=== PATIENT | female | born 1980 | race Caucasian/White ===

== ENCOUNTER 2019-11-02 14:59 | Emergency (ER) | payer OTHER ==
[~2019-11-02] VITALS: Ht 162.6 cm; Wt 90.7 kg
[2019-11-02] MEDS ORDERED: XANAX XR1 MG PO (15:12)
[2019-11-02] MEDS ORDERED: XANAX1 MG PO ×2 (15:12→15:20)
[2019-11-02 15:13] LABS: URINE BILIRUBIN NEGATIVE (Negative); URINE BLOOD 2+ (Negative); URINE CLARITY CLOUDY; URINE COLOR YELLOW; URINE GLUCOSE-RANDOM NEGATIVE (Negative); URINE KETONES NEGATIVE (Negative); URINE LEUKOCYTES-REFLEX 1+ (Negative); URINE PROTEIN NEGATIVE (Negative); URINE SPECIFIC GRAVITY 1.015 (1.005-1.030)
[2019-11-02] MEDS ORDERED: OMEPRAZOLE20 M3 PO (15:13)
[2019-11-02 15:14] LABS: URINE NITRITE-REFLEX POSITIVE (Negative)
[2019-11-02 15:19] LABS: AMP/METHAMP Negative (Negative); BARBITURATES Negative (Negative); BENZODIAZEPINES POSITIVE (Negative); COCAINE Negative (Negative); METHADONE Negative (Negative); OPIATES Negative (Negative); PCP Negative (Negative); THC Negative (Negative)
[2019-11-02 15:20] LABS: SQUAMOUS >10 Many /LPF (0-3)
[2019-11-02] MEDS ORDERED: WELLBUTRIN SR150 M1 PO (15:20)
[2019-11-02] MEDS ORDERED: XANAX XR2 MG PO (15:20)
[2019-11-02 15:21] LABS: BACTERIA-REFLEX >30 Many /HPF (None Seen); CASTS None Seen /LPF (None Seen); CRYSTALS None Seen /LPF (None Seen); MUCUS >6 Heavy strn/LPF (None Seen); URINE RBC 0-2 Rare /HPF (0-2); URINE WBC-REFLEX 6-15 Few /HPF (0-5)
[2019-11-02] MEDS ORDERED: PHENTERMINE H37.5 MG PO (15:21)
[2019-11-02] MEDS ORDERED: LONHALA MA25 MCG/1 M (15:22)
[2019-11-02 15:37] LABS: ABSOLUTE BASOPHILS 0.1 thou/uL (0.0-0.2); ABSOLUTE EOSINOPHILS 0.3 thou/uL (0.0-0.7); ABSOLUTE LYMPHOCYTES 2.1 thou/uL (0.8-5.3); ABSOLUTE MONOCYTES 0.6 thou/uL (0.0-1.2); ABSOLUTE NEUTROPHILS 6.5 thou/uL (1.6-8.1); BASOPHILS 0.9 %; EOSINOPHILS 3.2 %; HEMATOCRIT 42.7 % (37.0-47.0); HEMOGLOBIN 14.7 gm/dL (12.0-15.0); LYMPHOCYTES 21.5 %; MCH 32.4 pg (26.0-34.0); MCHC 34.5 g/dL (28.0-37.0); MCV 94.1 fL (80.0-100.0); MONOCYTES 6.7 %; MPV 7.9 fl. (7.2-11.1); NUCLEATED RBCS 0 /100WBC; PLATELET COUNT* 425 thou/uL (150-400); POLYS 67.7 %; RBC 4.53 mil/uL (4.20-5.00); RDW-CV 13.3 % (10.5-14.5); WBC 9.6 thou/uL (4.0-11.0)
[2019-11-02 15:48] LABS: CALCIUM 8.6 mg/dL (8.5-10.1); CREATININE 0.9 mg/dL (0.6-1.3); POTASSIUM 3.9 mmol/L (3.5-5.1)
[2019-11-02] MEDS ORDERED: BACTRIM DS TAB1 EAC1 PO (15:48)
[2019-11-02 15:53] LABS: TOTAL BILIRUBIN 0.3 mg/dL (<0.1-1.0); TOTAL PROTEIN 7.3 g/dL (6.4-8.2)
[2019-11-02 15:54] LABS: ACETAMINOPHEN < 2 ug/mL (10-30); ALCOHOL < 10 mg/dL (<10); SALICYLATE < 2.8 mg/dL (2.8-20.0)
[2019-11-03 15:50] VITALS: BP 99/54
== END 2019-11-03 15:55 | disposition still patient (30) ==
LOC: M.ERS 14:59
PROVIDERS: Emergency Medicine Emergency Medical Services
DX: R45.851 Suicidal ideations (principal); Z20.828 Contact with and (suspected) exposure to other viral communicable diseases; Z79.899 Other long term (current) drug therapy